=== PATIENT | female | born 1950 | race Caucasian/White ===

== ENCOUNTER 2017-06-14 16:23 | Emergency (ER) | payer SELFPAY ==
[2017-06-14] MEDS ORDERED: NACL 0.9% 1000 ML 1,000 ML IV ONE (18:33)
--- NOTE | 2017-06-14 20:24 | Emergency Department Report ---
ED General Adult HPI - General Chief complaint: Hyperglycemia Stated complaint: BLOOD SUGAR HIGH Time Seen by Provider: 06/14/17 18:27 Source: patient Mode of arrival: Ambulatory Limitations: No Limitations - History of Present Illness Initial comments: Patient is a 66-year-old female who is presenting with high blood sugar. Patient states that she was on Janumet but this medication is over 1000 almost a month and she cannot afford it anymore. The patient says she does have some mild polydipsia polyuria but other than that she feels well otherwise. She's had no abdominal pain nausea vomiting abdominal cramps. Patient is here for options as far as I can she get her meds. - Related Data Allergies Allergy/AdvReac Type Severity Reaction Status Date / Time Penicillins Allergy Itching Verified 06/14/17 16:28 ED Review of Systems ROS: Stated complaint: BLOOD SUGAR HIGH Other details as noted in HPI Comment: All other systems reviewed and negative ED Past Medical Hx - Past Medical History Hx Diabetes: Yes - Surgical History Additional Surgical History: hysterectomy, bladder repair - Social History Smoking Status: Never Smoker Substance Use Type: None ED Physical Exam - General Limitations: No Limitations General appearance: alert, in no apparent distress - Head Head exam: Present: atraumatic, normocephalic - Eye Eye exam: Present: normal appearance - ENT ENT exam: Present: mucous membranes moist - Neck Neck exam: Present: normal inspection - Respiratory Respiratory exam: Present: normal lung sounds bilaterally. Absent: respiratory distress - Cardiovascular Cardiovascular Exam: Present: regular rate, normal rhythm. Absent: systolic murmur, diastolic murmur, rubs, gallop - GI/Abdominal GI/Abdominal exam: Present: soft, normal bowel sounds - Extremities Exam Extremities exam: Present: normal inspection - Back Exam Back exam: Present: normal inspection - Neurological Exam Neurological exam: Present: alert, oriented X3 - Psychiatric Psychiatric exam: Present: normal affect, normal mood - Skin Skin exam: Present: warm, dry, intact, normal color. Absent: rash ED Course Vital Signs 06/14/17 16:29 Temperature 98.4 F Pulse Rate 80 Respiratory 16 Rate Blood Pressure 140/65 O2 Sat by Pulse 98 Oximetry ED Medical Decision Making - Medical Decision Making Patient's glucose was approximate 300. Patient filling well and has been hydrated and will be discharged home Critical care attestation.: If time is entered above; I have spent that time in minutes in the direct care of this critically ill patient, excluding procedure time. ED Disposition Clinical Impression: Hyperglycemia Disposition: DC-01 TO HOME OR SELFCARE Is pt being admited?: No Does the pt Need Aspirin: No Condition: Stable Additional Instructions: Least take your glimepiride 2 tablets daily Referrals: PRIMARY CARE, [Primary Care Provider] - 3-5 Days
[2017-06-14 21:08] VITALS: BP 137/68
== END 2017-06-14 21:09 | disposition home or self-care (01) ==
LOC: ED 16:23
DX: E11.65 Type 2 diabetes mellitus with hyperglycemia (principal); Z90.710 Acquired absence of both cervix and uterus; Z88.0 Allergy status to penicillin
CPT/HCPCS: 82962; 96360; 99283; J7030